=== PATIENT | female | born 1955 | race Caucasian/White ===

== ENCOUNTER → 2017-01-19 | Outpatient (CLI) | payer OTHER ==
[~2017-01-19] MED LIST: ALBU18HF IH; ASCO500C PO; ASPI81TA2 PO; ATOR20TA PO; BIOT5TAB PO; CA C1TAB38 PO; CHOL400C PO; CYAN500T21 PO; DESO60CR13 TP; FAMO-63 PO; FLUT16SP2 NS; GLUC100018 PO; MAGN300C PO; MULT-18 PO; OMEG1CAP38 PO; OMEG1CAP6 PO; PYRI200T2 PO; VITA400T6 PO; [UNRECOGNIZED DRUG - CODE] MC
[2017-01-19 12:18] LABS: BASO % 1 % (0-3); EOS # 0.1 x10^3/uL (0.0-0.7); EOS % 1 % (0-3); HEMATOCRIT 45.5 % (36.0-47.0); HEMOGLOBIN 15.4 g/dL (12.0-15.5); LYMPH # 2.6 x10^3/uL (1.0-4.8); LYMPH % 36 % (24-48); MEAN CORPUSCULAR HEMOGLOBIN 33 pg (25-35); MEAN CORPUSCULAR HGB CONC 34 g/dL (31-37); MEAN CORPUSCULAR VOLUME 96 fL (79-100); MONO # 0.4 x10^3/uL (0.0-1.1); MONO % 6 % (0-9); NEUT # 4.2 x10^3uL (1.8-7.7); NEUT % 56 % (31-73); PLATELET COUNT 236 x10^3/uL (140-400); RED BLOOD COUNT 4.73 x10^6/uL (3.50-5.40); RED CELL DISTRIBUTION WIDTH 13.6 % (11.5-14.5); WHITE BLOOD COUNT 7.4 x10^3/uL (4.0-11.0)
[2017-01-19 12:31] LABS: ALBUMIN 3.8 g/dL (3.4-5.0); ALBUMIN/GLOBULIN RATIO 1.1 (1.0-1.7); CALCIUM 9.2 mg/dL (8.5-10.1); CREATININE 0.6 mg/dL (0.6-1.0); TOTAL BILIRUBIN 0.6 mg/dL (0.2-1.0); TOTAL PROTEIN 7.3 g/dL (6.4-8.2)
[2017-01-19 12:43] LABS: BACTERIA,URINE 0 /HPF (0-FEW); BILIRUBIN,URINE NEG (NEG); CLARITY,URINE CLEAR; COLOR,URINE YELLOW; GLUCOSE,URINE NEG (NEG); NITRITE,URINE NEG (NEG); RBC,URINE OCC /HPF (0-2); SQUAMOUS EPITHELIAL CELL,UR OCC /LPF; UROBILINOGEN,URINE 0.2 mg/dL (0.2 mg/dL); WBC,URINE 0 /HPF (0-4)
[2017-01-19 14:19] LABS: THYROID STIM HORMONE (TSH) 0.653 uIU/mL (0.358-3.740)
== END | disposition home or self-care (01) ==
LOC: LAB 10:12
PROVIDERS: ATTEND Family Medicine
DX: Z00.00 Encounter for general adult medical examination without abnormal findings (principal)
CPT/HCPCS: 36415; 80053; 80061; 81001; 82607; 82728; 84443; 85027

== ENCOUNTER → 2017-06-29 | Outpatient (CLI) | payer OTHER ==
[~2017-06-29] MED LIST changes: +ASPI-630 PO; -ASPI81TA2 PO
[2017-06-29 09:25] LABS: BASO # 0.1 x10^3/uL (0.0-0.2); BASO % 1 % (0-3); EOS # 0.1 x10^3/uL (0.0-0.7); EOS % 2 % (0-3); HEMATOCRIT 46.7 % (36.0-47.0); HEMOGLOBIN 16.2 g/dL (12.0-15.5); LYMPH # 2.6 x10^3/uL (1.0-4.8); LYMPH % 35 % (24-48); MEAN CORPUSCULAR HEMOGLOBIN 33 pg (25-35); MEAN CORPUSCULAR HGB CONC 35 g/dL (31-37); MEAN CORPUSCULAR VOLUME 96 fL (79-100); MONO # 0.4 x10^3/uL (0.0-1.1); MONO % 6 % (0-9); NEUT # 4.2 x10^3uL (1.8-7.7); NEUT % 57 % (31-73); PLATELET COUNT 288 x10^3/uL (140-400); RED BLOOD COUNT 4.88 x10^6/uL (3.50-5.40); RED CELL DISTRIBUTION WIDTH 13.8 % (11.5-14.5); WHITE BLOOD COUNT 7.4 x10^3/uL (4.0-11.0)
[2017-06-29 09:33] LABS: BILIRUBIN,URINE NEG (NEG); CLARITY,URINE CLEAR; COLOR,URINE YELLOW; GLUCOSE,URINE NEG (NEG); UROBILINOGEN,URINE 0.2 mg/dL (0.2 mg/dL)
[2017-06-29 09:34] LABS: BACTERIA,URINE 0 /HPF (0-FEW); NITRITE,URINE NEG (NEG); RBC,URINE 0 /HPF (0-2); WBC,URINE 0 /HPF (0-4)
[2017-06-29 09:42] LABS: ALBUMIN 4.4 g/dL (3.4-5.0); ALBUMIN/GLOBULIN RATIO 1.2 (1.0-1.7); CALCIUM 9.3 mg/dL (8.5-10.1); TOTAL PROTEIN 8.1 g/dL (6.4-8.2)
[2017-06-29 09:43] LABS: CREATININE 0.5 mg/dL (0.6-1.0); GFR 124.6; POTASSIUM 4.3 mmol/L (3.5-5.1); TOTAL BILIRUBIN 0.5 mg/dL (0.2-1.0)
[2017-07-01 01:09] LABS: HCV ANTIBODY <0.1 s/co ratio (0.0-0.9)
== END | disposition home or self-care (01) ==
LOC: LAB 08:52
PROVIDERS: ATTEND Physician Assistant
DX: Z00.01 Encounter for general adult medical examination with abnormal findings (principal); E04.1 Nontoxic single thyroid nodule; E78.4 Other hyperlipidemia; J44.0 Chronic obstructive pulmonary disease with (acute) lower respiratory infection; Z72.0 Tobacco use
CPT/HCPCS: 36415; 80053; 80061; 81001; 82306; 85025; 86803

== ENCOUNTER → 2017-07-02 | Outpatient (CLI) | payer OTHER ==
--- NOTE | 2017-07-02 15:52 | RAD ---
Thyroid ultrasound Indication: Thyroid cysts and nodules Technique: Grayscale and color Doppler ultrasound of the thyroid Comparison: None. Previous ultrasound performed at [facility] on 01/16/2014. Findings: The right thyroid lobe measures 4.9 x 1.5 a 1.5 cm with scattered very small hypoechoic/anechoic lesions most likely cysts. The left thyroid lobe measures 4.2 x 1.3 x 1.4 cm with a dominant mixed solid and cystic hypoechoic lesion with well-circumscribed margins and internal punctate echogenic foci measuring 1.0 x 0.8 x 0.7 cm, previously 0.9 x 0.8 x 0.7 cm. Minimal internal vascular disease seen in this lesion.Another left thyroid lobe hypoechoic well-circumscribed lesion measures 0.3 x 0.3 x 0.2 cm without echogenic foci and is wider than taller. Thyroid isthmus measures 0.3 cm with 2 hypoechoic well-circumscribed, wider than taller nodules, the largest measuring 0.5 x 0.1 x 0.1 cm. Impression: Complex left thyroid lobe nodule relatively stable in size dating back to 2013 per tech note. Direct comparison with outside ultrasound recommended. This is moderately suspicious according to TI-RADS criteria. Given the lesion size of 1.0 cm, follow-up in 6 months recommended.
--- NOTE | 2017-07-03 09:13 | RAD ---
DATE: 07/03/2017 EXAM: Bilateral mammograms HISTORY: Routine screening COMPARISON: There is mammogram from 2014, 2013 and 2010 This study was interpreted with the benefit of Computerized Aided Detection (CAD). FINDINGS: MLO and CC digital mammogram views performed, 2-D and 3-D. The breast parenchyma is heterogeneously dense, which could reduce sensitivity of mammography. The skin and nipples are within normal limits. There are a few punctate benign calcifications towards the axilla bilaterally. There are no dominant suspicious masses, suspicious microcalcifications or evidence of architectural distortion. IMPRESSION: No mammographic evidence of malignancy. Stable mammogram. BI-RADS CATEGORY: 2 BENIGN FINDING RECOMMENDED FOLLOW-UP: 12M 12 MONTH FOLLOW-UP PQRS compliance statement: Patient information was entered into a reminder system with a target due date 07/03/2018 for the next mammogram. Mammography is a sensitive method for finding small breast cancers, but it does not detect them all and is not a substitute for careful clinical examination. A negative mammogram does not negate a clinically suspicious finding and should not result in delay in biopsying a clinically suspicious abnormality. "Our facility is accredited by the [employer] Mammography [employer]."
== END | disposition home or self-care (01) ==
LOC: US 12:41
PROVIDERS: ATTEND Physician Assistant
DX: Z12.31 Encounter for screening mammogram for malignant neoplasm of breast (principal); E04.1 Nontoxic single thyroid nodule; J44.0 Chronic obstructive pulmonary disease with (acute) lower respiratory infection; Z72.0 Tobacco use
CPT/HCPCS: 76536; 77063; G0202; 77067

== ENCOUNTER → 2017-07-23 | Day surgery (SDC) | payer OTHER ==
[~2017-07-23] MED LIST changes: +IV RINGERS SOLUTION,LACTATED 1,000 ML IV ONE; +LIDOCAINE 2% PF Vial for OR 5 ML VIAL. ONE; +PROPOFOL 40 ML IV ONE
== END | disposition home or self-care (01) ==
LOC: SURG 07:43
PROVIDERS: ATTEND Internal Medicine Gastroenterology
DX: Z12.11 Encounter for screening for malignant neoplasm of colon (principal); K57.30 Diverticulosis of large intestine without perforation or abscess without bleeding; K55.20 Angiodysplasia of colon without hemorrhage; K64.8 Other hemorrhoids; K29.70 Gastritis, unspecified, without bleeding; K29.80 Duodenitis without bleeding; Z80.0 Family history of malignant neoplasm of digestive organs
CPT/HCPCS: 43239; 45380; J2704; J7120; J2001

== ENCOUNTER → 2017-08-12 | Outpatient (CLI) | payer OTHER ==
[~2017-08-12] MED LIST changes: -IV RINGERS SOLUTION,LACTATED 1,000 ML IV ONE; -LIDOCAINE 2% PF Vial for OR 5 ML VIAL. ONE; -PROPOFOL 40 ML IV ONE
--- NOTE | 2017-08-12 14:21 | RAD ---
3 views right knee radiograph 08/12/2017 Clinical indication: Right knee pain. Comparison: None. Findings: No acute fracture or traumatic malalignment. Joint spaces are maintained. There is a small suprapatellar knee joint effusion. Impression: 1. No acute osseous abdomen. 2. Small suprapatellar knee joint effusion.
== END | disposition home or self-care (01) ==
LOC: DXRAD 13:47
PROVIDERS: ATTEND Nurse Practitioner Adult Health
DX: M25.561 Pain in right knee (principal); M25.461 Effusion, right knee; F17.200 Nicotine dependence, unspecified, uncomplicated
CPT/HCPCS: 73562

== ENCOUNTER → 2017-10-23 | Outpatient (CLI) | payer OTHER ==
[2017-10-23 11:01] LABS: BASO # 0.1 x10^3/uL (0.0-0.2); BASO % 1 % (0-3); EOS # 0.1 x10^3/uL (0.0-0.7); EOS % 1 % (0-3); HEMATOCRIT 40.7 % (36.0-47.0); HEMOGLOBIN 13.9 g/dL (12.0-15.5); LYMPH # 2.6 x10^3/uL (1.0-4.8); LYMPH % 41 % (24-48); MEAN CORPUSCULAR HEMOGLOBIN 33 pg (25-35); MEAN CORPUSCULAR HGB CONC 34 g/dL (31-37); MEAN CORPUSCULAR VOLUME 96 fL (79-100); MONO # 0.5 x10^3/uL (0.0-1.1); MONO % 8 % (0-9); NEUT # 3.2 x10^3uL (1.8-7.7); NEUT % 49 % (31-73); PLATELET COUNT 303 x10^3/uL (140-400); RED BLOOD COUNT 4.25 x10^6/uL (3.50-5.40); RED CELL DISTRIBUTION WIDTH 13.2 % (11.5-14.5); WHITE BLOOD COUNT 6.5 x10^3/uL (4.0-11.0)
== END | disposition home or self-care (01) ==
LOC: LAB 10:40
PROVIDERS: ATTEND Internal Medicine Gastroenterology
DX: K92.1 Melena (principal); F17.210 Nicotine dependence, cigarettes, uncomplicated
CPT/HCPCS: 36415; 85025

== ENCOUNTER → 2018-07-09 | Outpatient (CLI) | payer OTHER ==
[2018-07-09 10:54] LABS: BASO # 0.1 x10^3/uL (0.0-0.2); BASO % 1 % (0-3); EOS # 0.1 x10^3/uL (0.0-0.7); EOS % 1 % (0-3); HEMATOCRIT 43.9 % (36.0-47.0); HEMOGLOBIN 14.9 g/dL (12.0-15.5); LYMPH # 2.9 x10^3/uL (1.0-4.8); LYMPH % 38 % (24-48); MEAN CORPUSCULAR HEMOGLOBIN 32 pg (25-35); MEAN CORPUSCULAR HGB CONC 34 g/dL (31-37); MEAN CORPUSCULAR VOLUME 95 fL (79-100); MONO # 0.5 x10^3/uL (0.0-1.1); MONO % 7 % (0-9); NEUT % 53 % (31-73); PLATELET COUNT 295 x10^3/uL (140-400); RED BLOOD COUNT 4.62 x10^6/uL (3.50-5.40); WHITE BLOOD COUNT 7.7 x10^3/uL (4.0-11.0)
[2018-07-09 11:04] LABS: BACTERIA,URINE 0 /HPF (0-FEW); BILIRUBIN,URINE NEG (NEG); CLARITY,URINE CLEAR; COLOR,URINE YELLOW; GLUCOSE,URINE NEG (NEG); NITRITE,URINE NEG (NEG); SQUAMOUS EPITHELIAL CELL,UR OCC /LPF; UROBILINOGEN,URINE 0.2 mg/dL (0.2 mg/dL); WBC,URINE 0 /HPF (0-4)
[2018-07-09 11:07] LABS: ALBUMIN 3.9 g/dL (3.4-5.0); ALBUMIN/GLOBULIN RATIO 1.2 (1.0-1.7); CALCIUM 9.2 mg/dL (8.5-10.1); CREATININE 0.7 mg/dL (0.6-1.0); GFR 84.2; POTASSIUM 4.2 mmol/L (3.5-5.1); TOTAL BILIRUBIN 0.5 mg/dL (0.2-1.0); TOTAL PROTEIN 7.2 g/dL (6.4-8.2)
[2018-07-09 13:56] LABS: THYROID STIM HORMONE (TSH) 0.735 uIU/mL (0.358-3.740)
== END | disposition home or self-care (01) ==
LOC: LAB 10:31
PROVIDERS: ATTEND Family Medicine
DX: Z23 Encounter for immunization (principal); E78.01 Familial hypercholesterolemia; E03.9 Hypothyroidism, unspecified; J44.9 Chronic obstructive pulmonary disease, unspecified
CPT/HCPCS: 36415; 80053; 80061; 81001; 82306; 84443; 85025

== ENCOUNTER → 2019-05-19 | Outpatient (CLI) | payer MEDICARE ==
[~2019-05-19] MED LIST changes: -ALBU18HF IH; +ALBU2.5V8 IH
--- NOTE | 2019-05-19 08:53 | RAD ---
US SOFT TISSUE HEAD AND NECK CLINICAL INDICATION: Nontoxic thyroid nodules. Follow-up. PROCEDURE: Transverse and longitudinal grayscale and color Doppler images of the thyroid were obtained. COMPARISON: 07/02/2017 FINDINGS: Right: The right thyroid lobe measures 4.8 x 1.5 x 1.5 cm. No right thyroid lobe nodules. Isthmus: Measures 3 mm and is within normal limits. Left: The left thyroid lobe measures 4.1 x 1.7 x 1.6 cm. There is a solid and cystic hypoechoic nodule with internal calcifications measuring 0.8 x 0.9 x 0.8 cm, previously 1.0 x 0.8 x 0.7 cm. Hypoechoic oval-shaped nodule measuring 0.5 x 0.3 x 0.4 cm, previously 0.3 x 0.3 x 0.2 cm. IMPRESSION: Relatively stable to minimal change in left thyroid nodules as described above. Correlate with prior biopsy results. Electronically signed by: Олег Zaidi DO (05/19/2019 8:50 AM) [facility]
--- NOTE | 2019-05-20 09:54 | RAD ---
DATE: 05/20/2019 EXAM: MAMMO KANDY SCREENING BILATERAL HISTORY: Routine screening. COMPARISON: Previous mammogram from 2017. This study was interpreted with the benefit of Computerized Aided Detection (CAD). FINDINGS: Breast Density: DENSE The breast Parenchyma is dense, which could reduce the sensitivity of mammography. Breast parenchyma level density D.. The skin and nipples are within normal limits. No suspicious calcifications, spiculated mass or area of architectural distortion. IMPRESSION: No mammographic evidence of malignancy. BI-RADS CATEGORY: 2 BENIGN FINDING(S) RECOMMENDED FOLLOW-UP: 12M 12 MONTH FOLLOW-UP PQRS compliance statement: Patient information was entered into a reminder system with a target due date for the next mammogram. Mammography is a sensitive method for finding small breast cancers, but it does not detect them all and is not a substitute for careful clinical examination. A negative mammogram does not negate a clinically suspicious finding and should not result in delay in biopsying a clinically suspicious abnormality. "Our facility is accredited by the [employer] Mammography [employer]."
== END | disposition home or self-care (01) ==
LOC: US 07:31
PROVIDERS: ATTEND Physician Assistant
DX: Z12.31 Encounter for screening mammogram for malignant neoplasm of breast (principal); E04.2 Nontoxic multinodular goiter
CPT/HCPCS: 76536; 77063; 77067

== ENCOUNTER → 2020-04-10 | Outpatient (CLI) | payer MEDICARE | LOC: LAB 07:40 | PROVIDERS: ATTEND Internal Medicine Critical Care Medicine | DX: Z11.59 Encounter for screening for other viral diseases (principal) | CPT/HCPCS: 36415; U0003 ==

== ENCOUNTER → 2020-05-21 | Outpatient (CLI) | payer MEDICARE ==
--- NOTE | 2020-05-21 12:04 | RAD ---
DATE: 05/21/2020 8:20 AM EXAM: MAMMO KANDY SCREENING BILATERAL HISTORY: Screening. Patient undergoing radiation therapy for bilateral lung cancer and currently is experiencing left breast tenderness. COMPARISON: 05/19/2019, 07/02/2017. Bilateral CC and MLO views of the breasts were performed. Bilateral breast tomosynthesis was performed in CC and MLO projections. This study was interpreted with the benefit of Computerized Aided Detection (CAD). FINDINGS: Breast Density: HETERO The breast parenchyma Is heterogeneously dense, which could reduce sensitivity of mammography. Breast parenchyma level C No suspicious masses, microcalcifications or architectural distortion is present to suggest malignancy in either breast. The visualized axillae are unremarkable. IMPRESSION: No mammographic evidence of malignancy. BI-RADS CATEGORY: 1 NEGATIVE RECOMMENDED FOLLOW-UP: 12M 12 MONTH FOLLOW-UP Annual screening mammography is recommended, unless clinically indicated sooner based on symptoms or change in physical exam. PQRS compliance statement: Patient information was entered into a reminder system with a target due date for the next mammogram. Mammography is a sensitive method for finding small breast cancers, but it does not detect them all and is not a substitute for careful clinical examination. A negative mammogram does not negate a clinically suspicious finding and should not result in delay in biopsying a clinically suspicious abnormality. "Our facility is accredited by the [employer] Mammography [employer]."
== END | disposition home or self-care (01) ==
LOC: MAMMO 07:55
PROVIDERS: ATTEND Family Medicine
DX: Z12.31 Encounter for screening mammogram for malignant neoplasm of breast (principal)
CPT/HCPCS: 77063; 77067

== ENCOUNTER → 2020-11-27 | Outpatient (CLI) | payer MEDICARE | LOC: LAB 14:00 | PROVIDERS: ATTEND Internal Medicine Gastroenterology | DX: Z01.812 Encounter for preprocedural laboratory examination (principal); R19.4 Change in bowel habit; Z20.822 Contact with and (suspected) exposure to COVID-19 | CPT/HCPCS: U0003 ==

== ENCOUNTER → 2021-03-04 | Outpatient (CLI) | payer MEDICARE ==
--- NOTE | 2021-03-04 15:12 | RAD ---
EXAM: BONE SCINTIGRAPHY. HISTORY: Right femoral pain, lung cancer. TECHNIQUE: Following the intravenous injection of 25.5 mCi of Tc-99m labeled methylene diphosphonate (MDP), delayed images of the whole body were performed in anterior and posterior projections. COMPARISON: None. FINDINGS: There are no foci of intense uptake suggestive of osseous metastatic disease. A small focus of mild uptake along a left lateral inferior rib is likely posttraumatic. Uptake along the patellofemoral and medial compartments of the right knee likely reflect osteoarthrit is. There is also uptake along the left patellofemoral compartment. Bilateral uptake within the mid f eet and shoulders is also likely degenerative. IMPRESSION: 1. No scintigraphic evidence of osseous metastatic disease. 2. Degenerative uptake as above, including at the right knee. No additional lesions within the right femur. Electronically signed by: Dawit Zhong MD (03/04/2021 3:09 PM) [id number]
== END ==
LOC: NM 08:39
PROVIDERS: ATTEND Family Medicine
DX: M17.11 Unilateral primary osteoarthritis, right knee (principal)
CPT/HCPCS: 78306; A9503

== ENCOUNTER → 2021-06-13 | Outpatient (CLI) | payer MEDICARE ==
--- NOTE | 2021-06-13 12:10 | RAD ---
EXAM: Abdomen and pelvis CT without intravenous contrast. HISTORY: Hematuria. TECHNIQUE: Computed tomographic images of the abdomen and pelvis were obtained without contrast. Mult iplanar reformatting was performed. *One or more of the following individualized dose reduction techniques were utilized for this examina tion: 1. Automated exposure control. 2. Adjustment of the mA and/or kV according to patient size. 3. Use of iterative reconstruction technique. COMPARISON: 10/09/2017. FINDINGS: Evaluation of the lower thorax is unremarkable. No hepatic lesion is seen. The gallbladder is unremarkable. No suspicious pancreatic lesion is seen. There are multiple splenic granulomas. The spleen is normal in size. The adrenal glands are unremarkable. There is [id number] left hydronephrosis and hydroureter extending to a 4 mm stone within the mi d ureter. There is also a suspected punctate stone within the proximal ureter. There may be a punctat e nonobstructing stone within the inferior left kidney. No additional bilateral renal or ureteral sto ne is seen. There is a 4.3 cm simple appearing right renal cyst. There is a 10 mm hyperdense lesion a long the lower pole the left kidney, likely a hemorrhagic cyst. There is a 1.[address] within the upper pole of the left kidney. The appendix is absent. There is no bowel obstruction. There is colonic diverticulosis. There is no d iverticulitis. The bladder wall is thickened, likely due to relative under distention. The aorta is n ormal in caliber. No pathologically enlarged lymph node is seen. There is no acute or suspicious osse ous lesion. IMPRESSION: 1. Mild to moderate left hydronephrosis secondary to an obstructing 4 mm mid ureteral stone. There is also a suspected punctate stone within the proximal left ureter and punctate stone within the lower pole the left kidney. 2. Multiple renal cysts, one of which along the lower pole the left kidney measuring 10 mm is hyperde nse and likely hemorrhagic. Renal sonography can be performed to confirm benignity. 3. Colonic diverticulosis. Electronically signed by: Wendi Martinez MD (06/13/2021 12:08 PM) [id number]
== END ==
LOC: CT 11:33
PROVIDERS: ATTEND Family Medicine
DX: K57.30 Diverticulosis of large intestine without perforation or abscess without bleeding (principal); N13.2 Hydronephrosis with renal and ureteral calculous obstruction
CPT/HCPCS: 74176

== ENCOUNTER 2021-07-23 07:18 | Emergency (ER) | payer MEDICARE ==
[~2021-07-23] VITALS: Ht 154.9 cm; Wt 61.0 kg
--- NOTE | 2021-07-23 07:55 | PHYS DOC ---
Past History Additional Past Medical Histor: OTEOPOROSIS; LUNG CA Past Surgical History: Appendectomy, Hysterectomy, Other Additional Past Surgical Histo: KIDNEY STONE REMOVED; TRIGGER FINGER SURGERIES Alcohol Use: Sober Additional Alcohol Information: 2-3 GLASSES WINE IN EVENING General Adult EDM: Chief Complaint: SHORTNESS OF BREATH HPI: HPI: Patient is a [age] year old [sex] who presents with [] Review of Systems: Review of Systems: Constitutional: Denies fever or chills Eyes: Denies redness or eye pain HENT: Denies nasal congestion or sore throat Respiratory: Denies cough or shortness of breath Cardiovascular: Denies chest pain or palpitations GI: Denies abdominal pain, nausea, or vomiting : Denies dysuria or hematuria Musculoskeletal: Denies back pain or joint pain Integument: Denies rash or skin lesions Neurologic: Denies headache, focal weakness or sensory changes Complete systems were reviewed and found to be within normal limits, except as documented in this note. Allergies: Allergies: Allergies Coded Allergies Type Severity Reaction Last Updated Verified aspirin Allergy Mild stomach upset 07/23/21 Yes Physical Exam: PE: Constitutional: Well developed, well nourished, no acute distress, non-toxic appearance HENT: Normocephalic, atraumatic Eyes: PERRL, EOMI, conjunctiva normal, no discharge Neck: Normal range of motion, no tenderness, supple Lungs & Thorax: No respiratory distress, equal chest rise and fall Abdomen: Soft, no tenderness Skin: Warm, dry, no erythema, no rash Back: No tenderness, no CVA tenderness Extremities: No tenderness, ROM intact, no edema Neurologic: Alert and oriented X 3, normal motor function, normal sensory function, no focal deficits noted Psychologic: Affect normal, judgment normal Current Patient Data: Vital Signs: Vital Signs Date Time Temp Pulse Resp B/P (MAP) Pulse Ox O2 Delivery O2 Flow Rate FiO2 07/23/21 07:39 98.2 93 15 140/89 (106) 94 Room Air EKG: EKG: @0731 NSR at 95bpm, NO ST elevation, QRS 82ms, QT/QTc 354/448ms Radiology/Procedures: Radiology/Procedures: PROCEDURE: PORTABLE CHEST 1V Exam Date: 07/23/2021 8:35 AM XR CHEST 1V Indication: Reason: dyspnea, cough, CHEST TIGHTNESS / Spl. Instructions: / History: . Comparison: March 08, 2016 FINDINGS/ IMPRESSION: Patchy infiltrates are seen in the lungs bilaterally, most prominent in the right upper lobe, suspicious for pneumonia. Follow-up imaging to resolution is recommended following treatment. There are coarse reticular markings in the lungs, most prominent in the left upper lobe, suggestive of scarring, more prominent compared to the prior exam from March 08, 2016. A subpleural spiculated lung nodule up to 1.5 cm at the periphery of the left lung in this region is not excluded. Consider short interval follow-up nonemergent chest CT following treatment for more acute findings above. The cardiac silhouette and pulmonary vasculature are within normal limits. There is no appreciable pleural effusion or pneumothorax. Electronically signed by: Keo Dietrich MD (07/23/2021 8:49 AM) [id number] Heart Score: C/O Chest Pain: N/A Course & Med Decision Making: Course & Med Decision Making Pertinent Labs and Imaging studies reviewed. (See chart for details) Patient stable for discharge with outpatient follow-up with PCP. Discussed findings and plan with patient, who acknowledges understanding and agreement. Dragon Disclaimer: doxo Disclaimer: This electronic medical record was generated, in whole or in part, using a voice recognition dictation system. Departure Departure: Impression: Primary Impression: Pneumonia Qualified Codes: J18.9 - Pneumonia, unspecified organism Disposition: HOME / SELF CARE / HOMELESS Condition: STABLE Referrals: SYDNI WHITLOCK MD (PCP) Patient Instructions: Pneumonia, Adult, Oyma-ty-Tanw Additional Instructions: GIVE COPY OF YOUR CHEST XR TO YOUR DOCTOR AND CONTINUE FOLLOW-UP WITH CT IMAGING PREVIOUSLY SCHEDULED. YOUR RAPID COVID TEST WAS NEGATIVE. WE STILL HAVE A PCR CONFIRMATORY TEST PENDING: You have been tested for or diagnosed with COVID-19. It is an infection caused by a new type of coronavirus. COVID-19 will cause cold-like or mild flu symptoms in most. It can cause more severe symptoms like problems breathing in some. There is no treatment for COVID-19. The body will clear the infection over time. Self-care will help to ease discomfort. Steps to Take: Self-Care Rest as needed. Healthy habits may help you feel better. Steps include: Choose healthy foods including fruits and vegetables. Drink water throughout the day. Get plenty of sleep each night. If you smoke, try to quit. It may ease breathing. Avoid alcohol. Keep Others Healthy The virus can spread to others. Droplets are released every time you sneeze or cough. The droplets can get into the mouth, nose, or eyes of people near you and lead to infection. To lower the chances of spreading COVID-19 to others: Stay at home until your doctor has said it is safe to leave. If you tested positive this will mean staying isolated until both of the following are true: At least 7 days have passed since the start of illness. You are free of fever for at least 72 hours without the use of medicine. During this time: - Avoid public areas, events, or transportation. Do not return to work or school until your doctor has said it is safe to do so. - Call ahead if you need to go to a medical center. Let them know you may have COVID-19. It will help them guide you where to go. They may also ask you to wear a facemask when you come to the office. - If you call for emergency medical services, let them know you may have COVID- 19. While at home: - Try to avoid close contact with others. Stay about 6 feet away. - If possible, spend most of your time in a separate room from others. - Use a face mask if you will be in close contact with others such as sharing a room or vehicle. - Have someone wipe down common surfaces in the home. Use household admissions gate attendant every day on areas like doorknobs, counters, or sinks. - Cough or sneeze into a tissue. Throw the tissue away right after use. If a tissue is not available, cough or sneeze into your elbow. - Wash your hands often. Wash them after sneezing or coughing. Use soap and water and wash for at least 20 seconds. Alcohol based hand seed cleaner operator can be used if soap and water is not available. - Do not prepare food for others. Avoid sharing personal items like forks, spoons, or toothbrushes. - Avoid close contact with pets while you are sick. There is no evidence of the virus passing to pets. This is a safety step until more is known about this virus. Isolation can be frustrating. Social interaction can help. Keep in touch with friends and family through phone and tech options. You can still interact with others in y our home, just keep a safe distance of about 6 feet. Follow-up: Your doctors office will check in with you to see if there are any changes in your health. You may be asked to keep track of symptoms to share with them. They will also let you know when you are clear to be in public again. Problems to Look Out For: Contact your doctor if your recovery is not going as you expect. Get emergency care if you have problems such as: - Trouble breathing - Nonstop chest pain or pressure - Changes in awareness, confusion, or problems waking - Lips or face have bluish color - Worsening of symptoms If you think you have an emergency, call for emergency medical services right away. As taken from [facility] Albuterol Sulfate (ALBUTEROL SULFATE NEB SOLN ) 2.5 Mg/3 Ml Vial.neb 1 VIAL NEB PRN Q4HRS PRN for SHORTNESS OF BREATH, #50 VIAL Prov: CHASE ROE DO 07/23/21 Prednisone (PREDNISONE) 20 Mg Tablet 2 TAB PO DAILY for Bronchitis, #8 TAB Start this prescription tomorrow, Thu07/24/21 Prov: CHASE ROE DO 07/23/21 Azithromycin (AZITHROMYCIN TABLET) 250 Mg Tablet 1 PKG PO UD for Pneumonia, #6 TAB Take 2 tablets today and then one tablet every day thereafter for the next 4 days Prov: CHASE ROE DO 07/23/21 Benzonatate (TESSALON PERLE) 100 Mg Capsule 1 CAP PO TID PRN for COUGH, #30 CAP Prov: CHASE ROE DO 07/23/21 CHASE ROE DO Jul 23, 2021 07:55
[2021-07-23] MEDS ORDERED: DEXAMETHASONE SOD PHOS 10 MG/ML VIAL. IVP ONE (08:00)
[2021-07-23] MEDS ORDERED: IV NORMAL SALINE 1,000ML 1,000 ML IV ONE (08:00)
--- NOTE | 2021-07-23 08:05 | EKG ---
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
[2021-07-23 08:48] LABS: BASO % 1 % (0-3); EOS # 0.1 x10^3/uL (0.0-0.7); EOS % 3 % (0-3); HEMATOCRIT 42.3 % (36.0-47.0); HEMOGLOBIN 14.1 g/dL (12.0-15.5); LYMPH # 1.4 x10^3/uL (1.0-4.8); LYMPH % 28 % (24-48); MEAN CORPUSCULAR HEMOGLOBIN 32 pg (25-35); MEAN CORPUSCULAR HGB CONC 33 g/dL (31-37); MEAN CORPUSCULAR VOLUME 95 fL (79-100); MONO # 0.6 x10^3/uL (0.0-1.1); MONO % 12 % (0-9); NEUT # 2.8 x10^3uL (1.8-7.7); NEUT % 56 % (31-73); PLATELET COUNT 241 x10^3/uL (140-400); RED BLOOD COUNT 4.45 x10^6/uL (3.50-5.40); RED CELL DISTRIBUTION WIDTH 14.4 % (11.5-14.5)
[2021-07-23 08:49] LABS: CALCIUM 8.9 mg/dL (8.5-10.1); CREATININE 0.6 mg/dL (0.6-1.0); GFR 99.7; POTASSIUM 3.8 mmol/L (3.5-5.1)
--- NOTE | 2021-07-23 08:52 | RAD ---
Exam Date: 07/23/2021 8:35 AM XR CHEST 1V Indication: Reason: dyspnea, cough, CHEST TIGHTNESS / Spl. Instructions: / History: . Comparison: March 08, 2016 FINDINGS/ IMPRESSION: Patchy infiltrates are seen in the lungs bilaterally, most prominent in the right upper lobe, suspici ous for pneumonia. Follow-up imaging to resolution is recommended following treatment. There are coarse reticular markings in the lungs, most prominent in the left upper lobe, suggestive o f scarring, more prominent compared to the prior exam from March 08, 2016. A subpleural spiculated june ng nodule up to 1.5 cm at the periphery of the left lung in this region is not excluded. Consider sh ort interval follow-up nonemergent chest CT following treatment for more acute findings above. The cardiac silhouette and pulmonary vasculature are within normal limits. There is no appreciable pleural effusion or pneumothorax. Electronically signed by: Keo Dietrich MD (07/23/2021 8:49 AM) [id number]
[2021-07-23 09:05] LABS: ALBUMIN 3.3 g/dL (3.4-5.0); ALBUMIN/GLOBULIN RATIO 0.9 (1.0-1.7); MAGNESIUM 1.9 mg/dL (1.8-2.4); TOTAL BILIRUBIN 0.2 mg/dL (0.2-1.0)
[2021-07-23 09:11] LABS: BACTERIA,URINE 0 /HPF (0-FEW); BILIRUBIN,URINE NEG (NEG); CLARITY,URINE CLEAR; COLOR,URINE YELLOW; GLUCOSE,URINE NEG (NEG); NITRITE,URINE NEG (NEG); RBC,URINE RARE /HPF (0-2); SQUAMOUS EPITHELIAL CELL,UR OCC /LPF; UROBILINOGEN,URINE 0.2 mg/dL (0.2 mg/dL); WBC,URINE 0 /HPF (0-4)
[2021-07-23 10:31] VITALS: BP 153/83
[2021-07-23] MEDS ORDERED: AZIT250T6 PO (10:36)
[2021-07-23] MEDS ORDERED: ALBU2.5V5 NEB (10:36)
[2021-07-23] MEDS ORDERED: BENZ100C PO (10:36)
[2021-07-23] MEDS ORDERED: PRED20TA PO (10:36)
== END 2021-07-23 11:02 | disposition home or self-care (01) ==
LOC: ER 07:18
DX: J18.9 Pneumonia, unspecified organism (principal); Z20.822 Contact with and (suspected) exposure to COVID-19; Z88.6 Allergy status to analgesic agent
CPT/HCPCS: 36415; 71045; 80053; 81001; 82553; 83605; 83735; 83880; 84484; 85025; 87426; 93005; 96361; 96374; 99285; C9803; J1100; J7030; U0003

== ENCOUNTER → 2021-09-16 | Outpatient (CLI) | payer MEDICARE ==
[~2021-09-16] MED LIST changes: +ALBU2.5V5 NEB; +AZIT250T6 PO; +BENZ100C PO; +PRED20TA PO
--- NOTE | 2021-09-16 17:15 | RAD ---
EXAM: Head CT without contrast. HISTORY: Dizziness. TECHNIQUE: Computed tomographic images of the head were obtained without contrast. *One or more of the following individualized dose reduction techniques were utilized for this examina tion: 1. Automated exposure control. 2. Adjustment of the mA and/or kV according to patient size. 3. Use of iterative reconstruction technique. COMPARISON: None. FINDINGS: There is no acute or subacute extra-axial or intraparenchymal hemorrhage. There is no mass effect or midline shift. There is no hydrocephalus. There are areas of decreased attenuation within the cerebral white matter, nonspecific and likely rel ated to chronic small vessel disease. The visualized portions of the orbits, paranasal sinuses and mastoid air cells are unremarkable. No s uspicious calvarial lesion is seen. IMPRESSION: No acute intracranial findings. Electronically signed by: Wendi Martinez MD (09/16/2021 5:13 PM) [id number]
== END ==
LOC: RAD 16:45
PROVIDERS: ATTEND Family Medicine
DX: R42 Dizziness and giddiness (principal)
CPT/HCPCS: 70450

== ENCOUNTER → 2021-11-08 | Outpatient (CLI) | payer MEDICARE ==
--- NOTE | 2021-11-08 12:08 | RAD ---
EXAM: Maxillofacial bone CT without contrast; neck CT without contrast. HISTORY: Sinusitis. Choking. TECHNIQUE: Computed tomographic images of the maxillofacial bones and neck were obtained without cont rast. *One or more of the following individualized dose reduction techniques were utilized for this examina tion: 1. Automated exposure control. 2. Adjustment of the mA and/or kV according to patient size. 3. Use of iterative reconstruction technique. COMPARISON: 09/16/2021. FINDINGS: Maxillofacial bones: The paranasal sinuses are clear. There is slight attenuation of the left ostiome atal unit. There is leftward nasal septal deviation. There is an incidental right catie bullosa. The orbits are unremarkable. The mastoid air cells are clear. The temporomandibular joints are intact. T here is no acute finding involving the visualized portions of the brain. There is mild age-appropriat e cerebral volume loss. Neck: There is a 5 mm calcification within the right lingular tonsil. There is slight asymmetry in th e size of the right lingular tonsil. There is a tiny calcification within the deep lobe of the left p arotid gland. The parotid and submandibular glands are otherwise unremarkable. There is no lymphadeno laurence. The thyroid is unremarkable. There is pulmonary emphysema. There are multiple groundglass nodu lar opacities throughout the bilateral upper lobes, the majority of which appear to be due to scarrin g or postinfectious/postinflammatory in etiology. There is masslike consolidation with adjacent pleur al thickening within the lateral left upper lobe measuring 3.7 cm on the [id number]. There is a sp iculated groundglass opacity within the right lung apex measuring 2.0 cm. There is a calcified right paratracheal granuloma. There are mild degenerative changes involving the cervical spine. There is no acute osseous finding or severe stenosis. IMPRESSION: 1. Mild asymmetry in the right greater than left tonsillar soft tissues and 6 mm right tonsillar calc ification. This may be physiologic. Tonsillitis is not excluded. There is no drainable fluid collecti on or lymphadenopathy. 2. No evidence of acute or chronic sinusitis. 3. Pulmonary emphysema and multiple possibly postinfectious or postinflammatory groundglass and nodul ar opacities and areas of pleural parenchymal scarring within the bilateral upper lobes, one of which is masslike within the lateral left upper lobe. This can be better assessed with a dedicated chest C T. Electronically signed by: Wendi Martinez MD (11/08/2021 12:06 PM) [id number]
== END ==
LOC: CT 10:57
PROVIDERS: ATTEND Family Medicine
DX: J34.2 Deviated nasal septum (principal); J43.9 Emphysema, unspecified; J84.10 Pulmonary fibrosis, unspecified
CPT/HCPCS: 70486; 70490

== ENCOUNTER 2021-11-19 14:37 | Emergency (ER) | payer MEDICARE ==
[~2021-11-19] VITALS: Ht 152.4 cm; Wt 54.5 kg
[2021-11-19] MEDS ORDERED: IOHEXOL 350 MG/ML 100 ML VIAL. IV ONE (15:00)
--- NOTE | 2021-11-19 15:11 | RAD ---
CT HEAD INDICATION: Reason: LEFT FACIAL DROOP / Spl. Instructions: / History: COMPARISON: 08/29/2021 Exposure: One or more of the following individualized dose reduction techniques were utilized for thi s examination: 1. Automated exposure control 2. Adjustment of the mA and/or kV according to patient size 3. Use of iterative reconstruction technique TECHNIQUE: 5 mm contiguous axial images were obtained from the skull base to the vertex in both bone and soft tissue algorithm. FINDINGS: There is hypodensity identified in the left cerebellum which appears to have slightly prominent kassy red to prior exam could be age indeterminate infarct or ischemia or mass or edema/radiation treatment No evidence of acute intracranial hemorrhage. No extra-axial fluid collections. No mass effect or midline shift. Ventricular size is appropriate. Basal cisterns are patent. No fractures identified.Phillips-white differentiation is preserved.Globes and orbits are within normal l imits. Paranasal sinuses and mastoid air cells are clear. IMPRESSION: 1. No acute intracranial bleed. 2.Hypodensity identified in the left cerebellum which appears to have slightly prominent compared to prior exam could be age indeterminate infarct or ischemia or mass or edema/radiation treatment. Recom mend MRI for further evaluation. FOR INTERNAL CODING PURPOSES Critical result: Findings discussed with ER physician at 11/19/2021 3:09 PM. RESULT CODE: (C) Electronically signed by: Reyes Murphy MD (11/19/2021 3:09 PM) [id number]
--- NOTE | 2021-11-19 15:23 | RAD ---
Examination: CT angiography head and neck with IV contrast COMPARISON:CT head same day exam History: Transient ischemic attack. TECHNIQUE: Axial CT angiographic images of the head and neck were performed with IV contrast. Coronal and sagittal 3-D MIP reformats are performed. 3-D Volumetric reformats of the carotids and [place] were performed. Exposure: One or more of the following individualized dose reduction techniques were utilized for thi s examination: 1. Automated exposure control 2. Adjustment of the mA and/or kV according to patient size 3. Use of iterative reconstruction technique Stenosis calculations for CT, MR, and conventional angiography are based upon measurements of the dis silas ICA diameter in accordance with the NASCET methodology. Stenosis calculations for carotid ultraso und studies are derived from validated velocity criteria which are known to correlate with the NASCET methodology. Findings: The origin of the great vessels from the arch of the aorta grossly appears unremarkable. The bilatera l common carotid arteries, bilateral external carotid arteries are patent. The petrous, cavernous int ernal carotid arteries are patent. The bilateral middle cerebral arteries, anterior cerebral arteries , posterior cerebral arteries are patent. The basilar artery, bilateral vertebral arteries are patent . Severe apical lung emphysematous changes identified. Linear atelectasis or scarring changes identifie d in the right apical lung. There is a 5 mm nodule or scar identified in the right apical lung. Mild degenerative changes cervical spine. IMPRESSION: 1. No evidence of hemodynamically significant stenosis or occlusion identified in the visualized art eries of the head and neck. 2. Given the hypodensity seen on the left cerebellum on the noncontrasted exam. Recommend MRI for fu rther evaluation. 3. Severe apical lung emphysematous changes identified in the lungs. Linear atelectasis or scarring changes identified in the right apical lung. There is a 5 mm nodule or scar identified in the right a pical lung. Electronically signed by: Reyes Murphy MD (11/19/2021 3:21 PM) [id number]
[2021-11-19 15:36] LABS: BASO % 0 % (0-3); EOS % 0 % (0-3); HEMATOCRIT 47.6 % (36.0-47.0); HEMOGLOBIN 16.3 g/dL (12.0-15.5); LYMPH # 1.1 x10^3/uL (1.0-4.8); LYMPH % 13 % (24-48); MEAN CORPUSCULAR HEMOGLOBIN 33 pg (25-35); MEAN CORPUSCULAR HGB CONC 34 g/dL (31-37); MEAN CORPUSCULAR VOLUME 96 fL (79-100); MONO # 0.1 x10^3/uL (0.0-1.1); MONO % 1 % (0-9); NEUT # 7.6 x10^3uL (1.8-7.7); NEUT % 86 % (31-73); PLATELET COUNT 292 x10^3/uL (140-400); RED BLOOD COUNT 4.97 x10^6/uL (3.50-5.40); RED CELL DISTRIBUTION WIDTH 13.2 % (11.5-14.5); WHITE BLOOD COUNT 8.9 x10^3/uL (4.0-11.0)
--- NOTE | 2021-11-19 16:07 | EKG ---
[address] [address] Test Date: 2021-11-19 Test Time: 15:58:39 Pat Name: SUSSY GRAY Department: Room: Gender: F Dining Server: GAYATHRI : 1955 Requested By: SYLVESTER RAMSAY Order Number: [id number] Reading MD: Measurements Intervals [place] Rate: 103 P: 52 NM: 190 QRS: 41 QRSD: 86 T: 46 QT: 340 QTc: 447 Interpretive Statements SINUS TACHYCARDIA OTHERWISE NORMAL ECG RI6.01 No previous ECG available for comparison
--- NOTE | 2021-11-19 16:35 | PHYS DOC ---
Past History Past Medical History: Arthritis, Cancer, COPD, High Cholesterol, Kidney Stones Additional Past Medical Histor: LUNG CANCER 2020(RADIATION [place]), BRAIN CANCER DIAGNOSED IN SEPTEMBER Past Surgical History: Hysterectomy Additional Past Surgical Histo: KIDNEY STONE REMOVED; TRIGGER FINGER SURGERIES Smoking: Cigarettes, Greater than 1 pack/day Alcohol Use: Occasionally Drug Use: None General Adult EDM: Chief Complaint: NEURO SYMPTOMS/DEFICITS HPI: HPI: Patient is a 66-year-old female coming in for left-sided facial droop that started about 2-1/2 to 3 hours prior to arrival. Patient states she was eating lunch with her daughter when they noticed the symptoms. Patient denies any upper or lower extremity weakness or paresthesias. Patient denies any vision changes, diplopia. Patient denies any headaches. Patient is a history significant for lung cancer with brain metastasis that are currently being worked up for treatment with radiation at . Patient has had a CT scan and an MRI IN the past week. Has radiation scheduled for next week. Patient denies any blood thinner use other than a 1 mg aspirin daily. Review of Systems: Review of Systems: All other systems within normal limits except for as noted in the HPI Current Medications: Current Meds: Current Medications Medications (Trade) Dose Ordered Sig/Eladio Start Time Stop Time Status Last Admin Dose Admin Iohexol (Omnipaque 350 Mg/ml) 100 ml 1X ONCE 11/19/21 15:00 11/19/21 15:01 DC 11/19/21 15:00 100 ML Allergies: Allergies: Allergies Coded Allergies Type Severity Reaction Last Updated Verified aspirin Allergy Mild stomach upset 11/19/21 Yes Physical Exam: PE: Constitutional: Well developed, well nourished, no acute distress, non-toxic ap pearance. [] HENT: Normocephalic, atraumatic, bilateral external ears normal, nose normal. TMs normal [] Eyes: PERRLA, conjunctiva normal, no discharge. Extraocular was intact [] Neck: No rigidity, supple, no stridor. [] Cardiovascular: Regular rate and rhythm, brisk cap refill [] Lungs & Thorax: Non labored symmetric respirations, no tachypnea or respiratory distress [] Abdomen: Soft, nondistended. Skin: Warm, dry, no erythema, no rash. [] Back: Unremarkable Extremities: No deformities, range of motion grossly intact, no lower extremity edema [] Neurologic: Alert and oriented X 3, no focal deficits noted. Droop of left mout h, weakness with closing left eye. Able to raise eyebrows to wrinkle forehead. Upper and lower extremity strength 5 out of 5 bilaterally, no pronator drift. No sensory deficits. [] Psychologic: Affect normal, judgement normal, mood normal. [] Current Patient Data: Labs: Laboratory Tests Test 11/19/21 14:48 11/19/21 14:49 Glucose (Fingerstick) 166 mg/dL (70-99) H White Blood Count 8.9 x10^3/uL (4.0-11.0) Red Blood Count 4.97 x10^6/uL (3.50-5.40) Hemoglobin 16.3 g/dL (12.0-15.5) H Hematocrit 47.6 % (36.0-47.0) H Mean Corpuscular Volume 96 fL (79-100) Mean Corpuscular Hemoglobin 33 pg (25-35) Mean Corpuscular Hemoglobin Concent 34 g/dL (31-37) Red Cell Distribution Width 13.2 % (11.5-14.5) Platelet Count 292 x10^3/uL (140-400) Neutrophils (%) (Auto) 86 % (31-73) H Lymphocytes (%) (Auto) 13 % (24-48) L Monocytes (%) (Auto) 1 % (0-9) Eosinophils (%) (Auto) 0 % (0-3) Basophils (%) (Auto) 0 % (0-3) Neutrophils # (Auto) 7.6 x10^3uL (1.8-7.7) Lymphocytes # (Auto) 1.1 x10^3/uL (1.0-4.8) Monocytes # (Auto) 0.1 x10^3/uL (0.0-1.1) Eosinophils # (Auto) 0.0 x10^3/uL (0.0-0.7) Basophils # (Auto) 0.0 x10^3/uL (0.0-0.2) Prothrombin Time 10.3 SEC (9.4-11.4) Prothrombin Time INR 1.0 (0.9-1.1) Activated Partial Thromboplast Time 24 SEC (23-33) Troponin I High Sensitivity 7 ng/L (4-50) Vital Signs: Vital Signs Date Time Temp Pulse Resp B/P (MAP) Pulse Ox O2 Delivery O2 Flow Rate FiO2 11/19/21 14:42 98.2 110 20 180/92 (121) 96 Room Air EKG: EKG: Sinus tachycardia, heart rate 103 BPM minute, normal axis, no isolation depression, no ectopy. [] Radiology/Procedures: Radiology/Procedures: [][address] [address] IMAGING REPORT Signed PATIENT: SUSSY GRAY ACCOUNT: [id number] : 1955 LOCATION: ER AGE: 66 SEX: F EXAM STATUS: REG ER ORD. PHYSICIAN: EMERGENCY,DEPARTMENT REASON: LEFT FACIAL DROOP PROCEDURE: CT CODE STROKE HEAD WO CT HEAD INDICATION: Reason: LEFT FACIAL DROOP / Spl. Instructions: / History: COMPARISON: 08/29/2021 Exposure: One or more of the following individualized dose reduction techniques were utilized for this examination: 1. Automated exposure control 2. Adjustment of the mA and/or kV according to patient size 3. Use of iterative reconstruction technique TECHNIQUE: 5 mm contiguous axial images were obtained from the skull base to the vertex in both bone and soft tissue algorithm. FINDINGS: There is hypodensity identified in the left cerebellum which appears to have slightly prominent compared to prior exam could be age indeterminate infarct or ischemia or mass or edema/radiation treatment No evidence of acute intracranial hemorrhage. No extra-axial fluid collections. No mass effect or midline shift. Ventricular size is appropriate. Basal cisterns are patent. No fractures identified.Phillips-white differentiation is preserved.Globes and orbits are within normal limits. Paranasal sinuses and mastoid air cells are clear. IMPRESSION: 1. No acute intracranial bleed. 2.Hypodensity identified in the left cerebellum which appears to have slightly prominent compared to prior exam could be age indeterminate infarct or ischemia or mass or edema/radiation treatment. Recommend MRI for further evaluation. FOR INTERNAL CODING PURPOSES Critical result: Findings discussed with ER physician at 11/19/2021 3:09 PM. RESULT CODE: (C) Electronically signed by: Reyes Murphy MD (11/19/2021 3:09 PM) [id number] DICTATED AND SIGNED BY: REYES MURPHY MD DATE: 11/19/21 145 CC: SYLVESTER RAMSAY MD; SYDNI WHITLOCK MD; EMERGENCY,DEPARTMENT ~MTH0 [address] [place] [id number] IMAGING REPORT Signed PATIENT: SUSSY GRAY ACCOUNT: [id number] : 1955 LOCATION: ER AGE: 66 SEX: F EXAM STATUS: REG ER ORD. PHYSICIAN: SYLVESTER RAMSAY MD REASON: left facial droop PROCEDURE: CT ANGIOGRAPHY HEAD AND NECK Examination: CT angiography head and neck with IV contrast COMPARISON:CT head same day exam History: Transient ischemic attack. TECHNIQUE: Axial CT angiographic images of the head and neck were performed with IV contrast. Coronal and sagittal 3-D MIP reformats are performed. 3-D Volumetric reformats of the carotids and [place] were performed. Exposure: One or more of the following individualized dose reduction techniques were utilized for this examination: 1. Automated exposure control 2. Adjustment of the mA and/or kV according to patient size 3. Use of iterative reconstruction technique Stenosis calculations for CT, MR, and conventional angiography are based upon measurements of the distal ICA diameter in accordance with the NASCET methodology. Stenosis calculations for carotid ultrasound studies are derived from validated velocity criteria which are known to correlate with the NASCET methodology. Findings: The origin of the great vessels from the arch of the aorta grossly appears unremarkable. The bilateral common carotid arteries, bilateral external carotid arteries are patent. The petrous, cavernous internal carotid arteries are patent. The bilateral middle cerebral arteries, anterior cerebral arteries, posterior cerebral arteries are patent. The basilar artery, bilateral vertebral arteries are patent. Severe apical lung emphysematous changes identified. Linear atelectasis or scarring changes identified in the right apical lung. There is a 5 mm nodule or scar identified in the right apical lung. Mild degenerative changes cervical spine. IMPRESSION: 1. No evidence of hemodynamically significant stenosis or occlusion identified in the visualized arteries of the head and neck. 2. Given the hypodensity seen on the left cerebellum on the noncontrasted exam. Recommend MRI for further evaluation. 3. Severe apical lung emphysematous changes identified in the lungs. Linear atelectasis or scarring changes identified in the right apical lung. There is a 5 mm nodule or scar identified in the right apical lung. Electronically signed by: Reyes Murphy MD (11/19/2021 3:21 PM) [id number] DICTATED AND SIGNED BY: REYES MURPHY MD DATE: 11/19/211511 CC: SYLVESTER RAMSAY MD; SYDNI WHITLOCK MD ~MTH0 0 Heart Score: C/O Chest Pain: No Risk Factors: Risk Factors: DM, Current or recent (<one month) smoker, HTN, HLP, family history of CAD, obesity. Risk Scores: Score 0 - 3: 2.5% MACE over next 6 weeks - Discharge Home Score 4 - 6: 20.3% MACE over next 6 weeks - Admit for Clinical Observation Score 7 - 10: 72.7% MACE over next 6 weeks - Early Invasive Strategies Course & Med Decision Making: Course & Med Decision Making Pertinent Labs and Imaging studies reviewed. (See chart for details) Consult placed to [facility] per patient request as patient is getting her other evaluations there. Discussed with Dr. Kilgore, neurologist the patient has NIH of 2 and a history of brain mets. Agree that patient should not be a TPA candidate. Does agree that patient will need an MRI, patient transferred to [facility]. Dr. Chávez attending is accepting physician [] Lennox Disclaimer: Lennox Disclaimer: This electronic medical record was generated, in whole or in part, using a voice recognition dictation system. Departure Departure: Impression: Primary Impression: Facial droop Disposition: 02 SHORT TERM HOSPITAL Condition: GUARDED Referrals: SYDNI WHITLOCK MD (PCP) SYLVESTER RAMSAY MD Nov 19, 2021 16:35
[2021-11-19 17:49] LABS: INFLUENZA A PATIENT NEGATIVE (NEGATIVE); INFLUENZA B PATIENT NEGATIVE (NEGATIVE)
[2021-11-19 19:40] VITALS: BP 164/99
== END 2021-11-19 20:00 | disposition short-term general hospital (02) ==
LOC: ER 14:37
DX: R29.810 Facial weakness (principal); M19.90 Unspecified osteoarthritis, unspecified site; J44.9 Chronic obstructive pulmonary disease, unspecified; E78.00 Pure hypercholesterolemia, unspecified; F17.210 Nicotine dependence, cigarettes, uncomplicated; Z20.822 Contact with and (suspected) exposure to COVID-19; Z87.442 Personal history of urinary calculi; Z88.6 Allergy status to analgesic agent
CPT/HCPCS: 36415; 70450; 70496; 70498; 82947; 84484; 85025; 85610; 85730; 87428; 93005; 99285; C9803; Q9967; U0003

== ENCOUNTER 2021-12-20 11:37 | Emergency (ER) | payer MEDICARE ==
[~2021-12-20] VITALS: Ht 152.4 cm; Wt 54.5 kg
--- NOTE | 2021-12-20 13:22 | PHYS DOC ---
Past History Past Medical History: Arthritis, Cancer, COPD, High Cholesterol, Kidney Stones Additional Past Medical Histor: LUNG CANCER 2020(RADIATION [place]), BRAIN METS DIAGNOSED IN SEPTEMBER Past Surgical History: Hysterectomy Additional Past Surgical Histo: KIDNEY STONE REMOVED; TRIGGER FINGER SURGERIES Smoking: Cigarettes, Greater than 1 pack/day Alcohol Use: None Drug Use: None General Adult EDM: Chief Complaint: BLOODY STOOL HPI: HPI: Patient is a 66 year old female with past medical history that includes lung cancer that has metastasized to the brain and spinal cord who presents with bright red blood per rectum. Patient's daughter is at bedside and aids in providing history. Patient's daughter states that the patient began having some bloody stool and blood on toilet tissue last night. This morning, they called to the patient's oncologist who strongly encouraged the patient to present to the emergency department for evaluation. Patient's daughter did not believe the patient was stable enough to drive to , and so she went against the advice of the patient's oncologist who presented to the emergency department here for evaluation. Patient started a new medication on Thursday, Keytruda. Patient reports that she does feel ill, but denies any new or worsening fatigue, lightheadedness, chest pain, palpitations or any other symptoms. Review of Systems: Review of Systems: ROS negative or noncontributory except as mentioned in HPI. Allergies: Allergies: Allergies Coded Allergies Type Severity Reaction Last Updated Verified aspirin Allergy Mild stomach upset 11/19/21 Yes Physical Exam: PE: Constitutional: Frail, chronically ill-appearing, no acute distress, nontoxic. HENT: Normocephalic, atraumatic, bilateral external ears normal, nose normal. Eyes: EOMI, conjunctiva normal, no discharge. Neck: Normal range of motion, n no stridor. Skin: Warm, dry, no erythema, no rash. Back: No tenderness, no CVA tenderness. Extremities: No tenderness, no cyanosis, no clubbing, ROM intact, no edema. Neurologic: Alert and oriented x4, no focal deficits noted. No rectal exam performed secondary to patient's daughter declining further exam. Current Patient Data: Labs: Laboratory Tests Test 12/20/21 12:55 White Blood Count 3.6 x10^3/uL (4.0-11.0) Red Blood Count 4.32 x10^6/uL (3.50-5.40) Hemoglobin 13.9 g/dL (12.0-15.5) Hematocrit 40.4 % (36.0-47.0) Mean Corpuscular Volume 93 fL (79-100) Mean Corpuscular Hemoglobin 32 pg (25-35) Mean Corpuscular Hemoglobin Concent 34 g/dL (31-37) Red Cell Distribution Width 13.3 % (11.5-14.5) Platelet Count 129 x10^3/uL (140-400) Neutrophils (%) (Auto) 83 % (31-73) Lymphocytes (%) (Auto) 5 % (24-48) Monocytes (%) (Auto) 10 % (0-9) Eosinophils (%) (Auto) 1 % (0-3) Basophils (%) (Auto) 0 % (0-3) Neutrophils # (Auto) 3.0 x10^3uL (1.8-7.7) Lymphocytes # (Auto) 0.2 x10^3/uL (1.0-4.8) Monocytes # (Auto) 0.4 x10^3/uL (0.0-1.1) Eosinophils # (Auto) 0.0 x10^3/uL (0.0-0.7) Basophils # (Auto) 0.0 x10^3/uL (0.0-0.2) Vital Signs: VS - Last 72 Hours, by Label Date Time Temp Pulse Resp B/P (MAP) Pulse Ox O2 Delivery O2 Flow Rate FiO2 12/20/21 15:00 78 18 124/67 (86) 96 Room Air 12/20/21 14:20 77 15 121/59 (79) 94 Room Air 12/20/21 14:00 78 15 117/60 (79) Room Air 12/20/21 13:20 78 17 113/58 (76) 95 Room Air 12/20/21 12:48 80 17 113/78 (90) 95 Room Air EKG: EKG: EKG Interpreted by Dr. Barkley at 1301: Regular rate and rhythm 82 bpm with no ectopic beats. QT 380 ms/QTc 447 ms. No STEMI. Heart Score: C/O Chest Pain: No Course & Med Decision Making: Course & Med Decision Making Pertinent Labs and Imaging studies reviewed. (See chart for details) Patient is a 66-year-old female who presents with chief complaint of bright red blood per rectum. Work-up will include labs to evaluate for hemorrhagic anemia. In the department, patient passes stool with some pink-tinged mucus and there is some pink discoloration to the toilet tissue. No josias blood is appreciated in bedside commode or on toilet tissue. I contacted the transfer line to discuss consult versus transfer. At this time, there is no medical need for emergent transfer or even medical admission. When I discussed these findings in this conversation with the transfer center with the patient and her daughter, her daughter became aggravated and frustrated. She stated she would like to leave and present directly to the emergency department. I provided her with discharge paperwork and encouraged her to seek a second opinion if she felt care here was not sufficient. Patient's daughter continued to express concern for "severe dehydration." It was discussed with patient's daughter that severe dehydration from a medical standpoint is accompanied by significant changes in vital signs, which the patient has not exhibited since arrival into the department. It was emphasized that we did speak to the transfer line, who declined medical transfer. Return precautions were provided. Patient and her daughter understand and were agreeable to discharge. Dragon Disclaimer: Dragon Disclaimer: This electronic medical record was generated, in whole or in part, using a voice recognition dictation system. Departure Departure: Impression: Primary Impression: Rectal bleeding Additional Impression: History of cancer metastatic to brain Disposition: 01 HOME / SELF CARE / HOMELESS Condition: STABLE Referrals: SYDNI WHITLOCK MD (PCP) Patient Instructions: Hemorrhoids, [id number], Rectal Bleeding, [id number] Additional Instructions: EMERGENCY DEPARTMENT GENERAL DISCHARGE INSTRUCTIONS Thank you for coming to [facility] (ED) today and trusting us with you care. We trust that you had a positive experience in our Emergency Department. If you wish to speak to the department management, you may call the director at [phone]. YOUR FOLLOW UP INSTRUCTIONS ARE FOLLOWS: 1. Follow up with your primary care doctor. If you do not have a primary doctor, please ask for a resource list of physicians or clinics that may be able to assist you with follow up care. 2. The emergency provider has interpreted your imaging studies, if any were ordered. The radiology relationship specialist also reviewed them. If there is a change in the findings, you will be notified in 48 hours when at all possible. 3. If a lab test or culture has been done, your results will be reviewed and you will be notified if you need a change in treatment. 4. Follow instructions verbalized to you and refer to the printouts if needed. ADDITIONAL INSTRUCTIONS AND INFORMATION: 1. Your care today has been supervised by a physician who is specially trained in emergency care. Many problems require more than one evaluation for a complete diagnosis and treatment. We recommend that you schedule your follow up appointment as recommended to ensure complete treatment of you illness or injury. If you are unable to obtain follow up care and continue to have a problem, or if your condition worsens, we recommend that you return to the ED. 2. We are not able to safely determine your condition over the phone nor are we able to give sound medical advice over the phone. For these safety reasons, if you call for medical advice we will ask you to come to the ED for further evaluation. 3. If you have any questions regarding these discharge instructions please call the ED at [phone]. SAFETY INFORMATION: In the interest of safety, wellness, and injury prevention; we encourage you to wear your seat belt, if you smoke; quite smoking, and we encourage family to use a protective helmet for bicycling and other sporting events that present an increased risk for head injury. IF YOUR SYMPTOMS WORSEN OR NEW SYMPTOMS DEVELOP, OR YOU HAVE CONCERNS ABOUT YOUR CONDITION; OR IF YOUR CONDITION WORSENS WHILE YOU ARE WAITING FOR YOUR FOLLOW UP APPOINTMENT; EITHER CONTACT YOUR PRIMARY CARE DOCTOR, THE PHYSICIAN WHOSE NAME AND NUMBER YOU WERE GIVEN, OR RETURN TO THE ED IMMEDIATELY. MARBIN BUCKNER Dec 20, 2021 13:22
[2021-12-20] MEDS ORDERED: ACET500T68 PO (13:27)
[2021-12-20] MEDS ORDERED: NAPR220T70 PO (13:27)
[2021-12-20 13:30] LABS: BASO % 0 % (0-3); EOS % 1 % (0-3); HEMATOCRIT 40.4 % (36.0-47.0); HEMOGLOBIN 13.9 g/dL (12.0-15.5); LYMPH # 0.2 x10^3/uL (1.0-4.8); LYMPH % 5 % (24-48); MEAN CORPUSCULAR HEMOGLOBIN 32 pg (25-35); MEAN CORPUSCULAR HGB CONC 34 g/dL (31-37); MEAN CORPUSCULAR VOLUME 93 fL (79-100); MONO # 0.4 x10^3/uL (0.0-1.1); MONO % 10 % (0-9); NEUT % 83 % (31-73); PLATELET COUNT 129 x10^3/uL (140-400); RED BLOOD COUNT 4.32 x10^6/uL (3.50-5.40); RED CELL DISTRIBUTION WIDTH 13.3 % (11.5-14.5); WHITE BLOOD COUNT 3.6 x10^3/uL (4.0-11.0)
[2021-12-20] MEDS ORDERED: PEMB100V IV (13:30)
[2021-12-20 15:00] VITALS: BP 124/67
--- NOTE | 2021-12-20 23:44 | EKG ---
[address] [address] Test Date: 2021-12-20 Test Time: 13:01:27 Pat Name: SUSSY GRAY Department: Room: Gender: F Breaker Off: : 1955 Requested By: MARBIN BUCKNER Order Number: [id number] Reading MD: Eliezer Davidson MD Measurements Intervals [place] Rate: 82 P: 90 NM: 192 QRS: 39 QRSD: 88 T: 32 QT: 380 QTc: 447 Interpretive Statements SINUS RHYTHM Electronically Signed On 12-24-2021 7:16:26 CDT by Eliezer Davidson MD
== END 2021-12-20 15:28 | disposition home or self-care (01) ==
LOC: ER 11:37
DX: K62.5 Hemorrhage of anus and rectum (principal); M19.90 Unspecified osteoarthritis, unspecified site; J44.9 Chronic obstructive pulmonary disease, unspecified; E78.00 Pure hypercholesterolemia, unspecified; F17.210 Nicotine dependence, cigarettes, uncomplicated; Z85.841 Personal history of malignant neoplasm of brain; Z85.118 Personal history of other malignant neoplasm of bronchus and lung; Z87.442 Personal history of urinary calculi; Z88.6 Allergy status to analgesic agent
CPT/HCPCS: 36415; 85025; 93005; 99285